=== PATIENT | female | born 1960 | race Caucasian/White ===

== ENCOUNTER 2020-03-15 11:29 | Inpatient (IN) ==
[2020-03-21] MEDS ORDERED: CEFUROXIME INJ 1,500 MG in SODIUM CHLORIDE 0.9% 100 ML IV ONE (09:05)
[2020-03-21] MEDS ORDERED: GLUCAGON 1 MG VIAL IM PRN (09:05)
[2020-03-21] MEDS ORDERED: DEXTROSE 50% 25 GM/50 ML VIAL IV PRN (09:05)
[2020-03-21] MEDS ORDERED: CLORAZEPATE 3.75 MG TABLET PO PRN (09:09)
[2020-03-21] MEDS ORDERED: ZALEPLON 5 MG CAPSULE PO PRN (09:09)
[2020-03-21 09:35] LABS: Basophils # 0.1 10*3/uL (0.0-0.2); Basophils % 0.8 % (0.0-0.8); Eosinophils # 0.4 10*3/uL (0.0-0.87); Eosinophils % 5.5 % (0.00-10.9); Hematocrit 45.8 VOL% (35.7-47.0); Hemoglobin 15.6 GM/DL (12.0-16.0); Immature Granulocytes % 0.3 %; Immature Granulocytes Absolute 0.02 #; Lymphocytes # 1.6 10*3/uL (1.4-4.0); Lymphocytes % 25.2 % (21.3-54.2); Mean Corpuscular HGB Conc 34.1 GM/DL (32-36); Mean Corpuscular Volume 94.6 FL (87-102); Mean Platelet Volume 9.6 FL (9.6-12.0); Monocytes % 10.1 % (1.7-12.7); Neutrophils % 58.1 % (38.7-73.9); Platelet Count 282 T/CUMM (130-400); Red Blood Count 4.84 MC/CUMM (3.8-5.5); White Blood Count 6.3 T/CUMM (4-12)
[2020-03-21 09:55] LABS: Albumin 3.7 G/DL (3.4-5.0); Bilirubin,Total 0.5 MG/DL (0.2-1.0); Calcium 8.9 MG/DL (8.5-10.1); Osmolality,Calculated 280.4 MOS/KG (273-304); Total Protein 8.4 G/DL (6.4-8.3)
[2020-03-21] MEDS ORDERED: ALBUTEROL/IPRATROPIUM 3 ML NEB RESP TX PRN (11:00)
[2020-03-21] MEDS: SODIUM CHLORIDE 0.9% 1,000 ML IV SCH (12:07)
[2020-03-21 14:47] LABS: ABG HCO3 26.2 MMOL/L (20-26); ABG Oxygen Saturation 94.5 % (95-100); ABG PCO2 39.8 MM HG (35-48); ABG PH 7.437 (7.35-7.45); ABG PO2 72.9 MM HG (80-95); ABG TCO2 27.5 MMOL/L (23-27)
[2020-03-21] MEDS: CHLORHEXIDINE 4% SOLN 118 ML BOTTLE TOP SCH ×2 (15:35→21:55)
[2020-03-21] MEDS ORDERED: MONTELUKAST 10 MG TABLET PO SCH (19:00)
[2020-03-21] MEDS ORDERED: NEBIVOLOL 10 MG TABLET PO SCH (19:00)
[2020-03-21] MEDS: BUDESONIDE/FORMOTEROL 160-4.5 INHALER 6 GM INH SCH (20:06)
[2020-03-21] MEDS: CHLORHEXIDINE 0.12% ORAL RINSE 60 ML BOTTLE SWISH/SPIT SCH (20:07)
[2020-03-22] MEDS ORDERED: VANCOMYCIN 1,000 MG VIAL ONE (04:21)
[2020-03-22] MEDS: CHLORHEXIDINE 4% SOLN 118 ML BOTTLE TOP SCH ×2 (04:50→10:48)
[2020-03-22] MEDS ORDERED: PANTOPRAZOLE 40 MG TABLET PO ONE (05:00)
[2020-03-22] MEDS ORDERED: DIAZEPAM 5 MG TABLET PO ONE (05:00)
[2020-03-22] MEDS ORDERED: CEFUROXIME INJ 1,500 MG in SYRINGE 1 EACH IV ONE (05:00)
[2020-03-22] MEDS ORDERED: MIDAZOLAM 10 MG/2 ML VIAL ONE ×2 (05:37)
[2020-03-22] MEDS ORDERED: CALCIUM CHLORIDE 1,000 MG/10 ML VIAL IV ONE (05:37)
[2020-03-22] MEDS ORDERED: LIDOCAINE 2% 5 ML VIAL ONE ×2 (05:37→10:26)
[2020-03-22] MEDS ORDERED: HEPARIN/NACL 0.9% 2 UNITS/ML 500 ML IV ONE (05:37)
[2020-03-22] MEDS ORDERED: AMINOCAPROIC ACID 5,000 MG/20 ML VIAL ONE (05:38)
[2020-03-22] MEDS ORDERED: ETOMIDATE 40 MG/20 ML VIAL IV ONE (05:38)
[2020-03-22] MEDS ORDERED: SUFentanil 250 MCG/5 ML AMP ONE (05:38)
[2020-03-22] MEDS ORDERED: SODIUM CHLORIDE 0.9% 250 ML IV ONE (05:39)
[2020-03-22] MEDS ORDERED: NITROGLYCERIN DRIP 50 MG/250 ML BOTTLE IV ONE (05:39)
[2020-03-22] MEDS ORDERED: LACTATED RINGERS 1,000 ML IV ONE ×2 (05:39→13:00)
[2020-03-22] MEDS ORDERED: PHENYLEPHRINE 10 MG/1 ML VIAL IV ONE (05:39)
[2020-03-22] MEDS ORDERED: VECURONIUM 10 MG VIAL IV ONE (05:39)
[2020-03-22] MEDS ORDERED: ePHEDrine 50 MG/ML VIAL ONE (05:39)
[2020-03-22] MEDS ORDERED: SODIUM CHLORIDE 0.9% 1,000 ML IV ONE (05:39)
[2020-03-22] MEDS ORDERED: IPRATROPIUM 500 MCG/2.5 ML NEB RESP TX ONE (06:00)
[2020-03-22] MEDS ORDERED: ALBUTEROL 2.5 MG/3 ML NEB RESP TX ONE (06:00)
[2020-03-22 07:34] LABS: ABG Base Excess 0.9 MMOL/L (-2.5-2.5); ABG HCO3 25.3 MMOL/L (20-26); ABG PH 7.406 (7.35-7.45); ABG TCO2 22.1 MMOL/L (23-27); Glucose Heart Surgery 130 MG/DL (74-106); Hematocrit Heart Surgery 43.9 PERCENT (37-47); Hemoglobin Heart Surgery 14.3 G/DL (12.0-16.0); Ionized Calcium Arterial 1.17 MMOL/L (1.21-1.46); PH Patient Temp Arterial 7.406; Patient Temperature 37 CELCIUS; Potassium Heart/CVR 3.3 MMOL/L (3.5-5.1); Sodium Heart/CVR 141 MMOL/L (135-145)
[2020-03-22 07:38] LABS: Bacteria,Urine Occasional /HPF (Few); Bilirubin,Urine Negative (Negative); Blood, Urine Negative (Negative); Glucose,Urine (UA) Negative (Negative); Ketones,Urine Negative (Negative); Nitrite,Urine Negative (Negative); Protein,Urine Negative; RBC,Urine <1 /HPF (0-4); Squamous Epithelial Cell,Urine Occasional /HPF (0-10); Urine Appearance CLEAR (Clear); Urine Color Yellow (Yellow); Urine Specific Gravity 1.009 (1.001-1.035); Urine Urobilinogen < 2.0 EU/DL (0.2-1.0); WBC,Urine <1 /HPF (0-6)
[2020-03-22] MEDS ORDERED: SODIUM BICARBONATE 50 MEQ/50 ML VIAL IV ONE ×2 (07:47→10:26)
[2020-03-22] MEDS ORDERED: PHENYLEPHRINE DRIP 40 MG/250 ML PREMIX IV ONE (07:48)
[2020-03-22] MEDS ORDERED: ALBUMIN 5% 12.5 GM/250 ML VIAL IV ONE (07:48)
[2020-03-22] MEDS ORDERED: NITROPRUSSIDE 50 MG/2 ML VIAL ONE (07:48)
[2020-03-22] MEDS ORDERED: ATROPINE 1 MG/10 ML SYRINGE ONE (07:49)
[2020-03-22] MEDS ORDERED: CALCIUM CHLORIDE 1,000 MG/10 ML SYRINGE IV ONE (07:49)
[2020-03-22] MEDS ORDERED: EPINEPHrine 1 MG/10 ML SYRINGE ONE (07:49)
[2020-03-22 08:39] LABS: Hematocrit Heart Surgery 29.9 PERCENT (37-47); Hemoglobin Heart Surgery 9.7 G/DL (12.0-16.0); PCO2 Patient Temp Venous 36.5 MM HG; PH Patient Temp Venous 7.446; PO2 Patient Temp Venous 37.8 MM HG; Potassium Heart/CVR 3.5 MMOL/L (3.5-5.1); VBG Base Excess 1.4 MEQ/L (0-4); VBG HCO3 25.4 MEQ/L (24-28); VBG Oxygen Saturation 81.9 %; VBG PCO2 42.2 MMHG (41-51); VBG PH 7.403; VBG PO2 46.5 MMHG (17-40)
[2020-03-22 09:05] LABS: Hematocrit Heart Surgery 30.6 PERCENT (37-47); Hemoglobin Heart Surgery 9.9 G/DL (12.0-16.0); PCO2 Patient Temp Venous 34.7 MM HG; PH Patient Temp Venous 7.462; PO2 Patient Temp Venous 37.4 MM HG; Potassium Heart/CVR 3.7 MMOL/L (3.5-5.1); VBG Base Excess 1.4 MEQ/L (0-4); VBG HCO3 25.5 MEQ/L (24-28); VBG Oxygen Saturation 84.1 %; VBG PCO2 42.1 MMHG (41-51); VBG PH 7.404; VBG PO2 49.2 MMHG (17-40)
[2020-03-22 09:36] LABS: Hematocrit Heart Surgery 32.6 PERCENT (37-47); Hemoglobin Heart Surgery 10.6 G/DL (12.0-16.0); PCO2 Patient Temp Venous 38.3 MM HG; PH Patient Temp Venous 7.432; PO2 Patient Temp Venous 37.6 MM HG; Potassium Heart/CVR 3.9 MMOL/L (3.5-5.1); VBG Base Excess 1.4 MEQ/L (0-4); VBG HCO3 25.3 MEQ/L (24-28); VBG Oxygen Saturation 77.5 %; VBG PCO2 42.2 MMHG (41-51); VBG PH 7.403; VBG PO2 43.2 MMHG (17-40)
[2020-03-22] MEDS ORDERED: DEXTROSE 5% KCL 20 MEQ 20 MEQ/1,000 ML BAG IV ONE (10:26)
[2020-03-22] MEDS ORDERED: HEPARIN 10,000 UNIT/10 ML VIAL ONE (10:26)
[2020-03-22] MEDS ORDERED: PROTAMINE SULFATE 250 MG/25 ML VIAL IV ONE (10:26)
[2020-03-22] MEDS ORDERED: methylPREDNISolone SOD SUC 1,000 MG/8 ML VIAL ONE (10:26)
[2020-03-22] MEDS ORDERED: ALBUMIN 25% 25 GM/100 ML VIAL IV ONE (10:26)
[2020-03-22] MEDS ORDERED: PROTAMINE SULFATE 50 MG/5 ML VIAL IV ONE (10:26)
[2020-03-22] MEDS ORDERED: FUROSEMIDE 20 MG/2 ML VIAL ONE (10:26)
[2020-03-22] MEDS ORDERED: MAGNESIUM SULFATE 5 GM/10 ML VIAL IV ONE (10:26)
[2020-03-22] MEDS ORDERED: MANNITOL 100 GM/500 ML BAG IV ONE (10:26)
[2020-03-22 10:27] LABS: ABG Base Excess -0.6 MMOL/L (-2.5-2.5); ABG HCO3 23.9 MMOL/L (20-26); ABG PCO2 42.5 MM HG (35-48); ABG PH 7.372 (7.35-7.45); ABG TCO2 22.2 MMOL/L (23-27); Glucose Heart Surgery 219 MG/DL (74-106); Ionized Calcium Arterial 1.17 MMOL/L (1.21-1.46); PCO2 Patient Temp Arterial 42.5 MMHG; PH Patient Temp Arterial 7.372; Patient Temperature 37 CELCIUS; Potassium Heart/CVR 3.6 MMOL/L (3.5-5.1); Sodium Heart/CVR 136 MMOL/L (135-145)
[2020-03-22] MEDS: CHLORHEXIDINE 0.12% ORAL RINSE 60 ML BOTTLE SWISH/SPIT SCH ×2 (10:48→20:31)
[2020-03-22] MEDS: SODIUM CHLORIDE 0.9% 1,000 ML IV SCH (10:49)
[2020-03-22] MEDS: BUDESONIDE/FORMOTEROL 160-4.5 INHALER 6 GM INH SCH (10:49)
[2020-03-22] MEDS ORDERED: MIDAZOLAM 2 MG/2 ML VIAL ONE (11:22)
[2020-03-22] MEDS ORDERED: CALCIUM CHLORIDE 1,000 MG/10 ML SYRINGE IV PRN (11:25)
[2020-03-22] MEDS ORDERED: MAGNESIUM SULF RIDER 4 GM in PREMIX 1 EACH IV PRN (11:25)
[2020-03-22] MEDS ORDERED: MAGNESIUM SULF RIDER 2 GM in PREMIX 1 EACH IV PRN (11:25)
[2020-03-22] MEDS ORDERED: INSULIN REGULAR 100 UNIT/ML IV PRN (11:25)
[2020-03-22] MEDS ORDERED: LACTATED RINGERS 250 ML IV PRN (11:25)
[2020-03-22] MEDS ORDERED: VECURONIUM 10 MG VIAL IV PRN ×2 (11:25)
[2020-03-22] MEDS ORDERED: MIDAZOLAM 10 MG/2 ML VIAL IV PRN (11:25)
[2020-03-22] MEDS ORDERED: PHENYLEPHRINE DRIP 40 MG/250 ML PREMIX IV PRN (11:25)
[2020-03-22] MEDS ORDERED: POTASSIUM CHLORIDE RIDER 10 MEQ in PREMIX 1 EACH IV PRN (11:25)
[2020-03-22] MEDS ORDERED: MORPHINE 10 MG/1 ML VIAL IV PRN (11:25)
[2020-03-22] MEDS ORDERED: POTASSIUM CHLORIDE RIDER 20 MEQ in PREMIX 1 EACH IV PRN (11:25)
[2020-03-22] MEDS ORDERED: INSULIN REGULAR 100 UNIT/ML IV ONE (11:25)
[2020-03-22] MEDS ORDERED: INSULIN REGULAR DRIP 100 ML IV SCH (11:25)
[2020-03-22] MEDS ORDERED: SODIUM CHLORIDE 0.45% 1,000 ML IV SCH ×2 (11:25)
[2020-03-22] MEDS ORDERED: CHLORHEXIDINE 4% SOLN 118 ML BOTTLE TOP PRN (11:25)
[2020-03-22] MEDS ORDERED: DEXTROSE 50% 25 GM/50 ML VIAL IV PRN ×2 (11:25)
[2020-03-22] MEDS ORDERED: NITROPRUSSIDE 100 MG in DEXTROSE 5% 250 ML IV PRN (11:25)
[2020-03-22] MEDS ORDERED: ACETAMINOPHEN 650 MG SUPP RECTAL PRN (11:25)
[2020-03-22] MEDS ORDERED: SEVOFLURANE 1 UNIT/15 MINUTE INH ONE (11:31)
[2020-03-22] MEDS: MIDAZOLAM 2 MG/2 ML VIAL IV PRN (11:40)
[2020-03-22 12:25] LABS: ABG Base Excess -2.2 MMOL/L (-2.5-2.5); ABG HCO3 22.6 MMOL/L (20-26); ABG Oxygen Saturation 99.4 % (95-100); ABG PCO2 40.9 MM HG (35-48); ABG PH 7.361 (7.35-7.45); ABG TCO2 20.4 MMOL/L (23-27); Glucose Heart Surgery 192 MG/DL (74-106); Hematocrit Heart Surgery 38.6 PERCENT (37-47); Hemoglobin Heart Surgery 12.6 G/DL (12.0-16.0); Potassium Heart/CVR 3.9 MMOL/L (3.5-5.1)
[2020-03-22] MEDS: KETOROLAC 30 MG/1 ML VIAL IV SCH ×2 (12:36→18:12)
[2020-03-22 12:39] LABS: Basophils # 0.1 10*3/uL (0.0-0.2); Basophils % 0.3 % (0.0-0.8); Eosinophils # 0.1 10*3/uL (0.0-0.87); Eosinophils % 0.4 % (0.00-10.9); Hematocrit 35.5 VOL% (35.7-47.0); Hemoglobin 12.7 GM/DL (12.0-16.0); Immature Granulocytes % 0.6 %; Immature Granulocytes Absolute 0.11 #; Lymphocytes # 1.3 10*3/uL (1.4-4.0); Lymphocytes % 7.3 % (21.3-54.2); Mean Corpuscular HGB Conc 35.8 GM/DL (32-36); Mean Corpuscular Volume 92.9 FL (87-102); Mean Platelet Volume 10.1 FL (9.6-12.0); Monocytes % 4.3 % (1.7-12.7); Neutrophils % 87.1 % (38.7-73.9); Platelet Count 207 T/CUMM (130-400); Red Blood Count 3.82 MC/CUMM (3.8-5.5); White Blood Count 18.2 T/CUMM (4-12)
[2020-03-22 12:50] LABS: CKMB % 4.8 %
[2020-03-22 12:55] LABS: Albumin 3.3 G/DL (3.4-5.0); Osmolality,Calculated 285.3 MOS/KG (273-304); Total Protein 6.7 G/DL (6.4-8.3)
[2020-03-22 12:57] LABS: INR 1.1; PT Patient Result 12.2 SECS (9.8-11.9); Partial Thromboplastin Time 24.1 SECS (23.9-33.8)
[2020-03-22 13:02] LABS: Troponin I 7.34 NG/ML (0.00-0.045)
[2020-03-22] MEDS: ALBUMIN 5% 12.5 GM in PREMIX 1 EACH IV PRN ×2 (13:49→16:54)
[2020-03-22 14:03] LABS: ABG Base Excess -2.5 MMOL/L (-2.5-2.5); ABG HCO3 22.3 MMOL/L (20-26); ABG Oxygen Saturation 98.6 % (95-100); ABG PCO2 43.4 MM HG (35-48); ABG PH 7.338 (7.35-7.45); ABG TCO2 21.1 MMOL/L (23-27); Glucose Heart Surgery 173 MG/DL (74-106); Hemoglobin Heart Surgery 10.7 G/DL (12.0-16.0); Potassium Heart/CVR 3.9 MMOL/L (3.5-5.1)
[2020-03-22] MEDS: ONDANSETRON 4 MG/2 ML VIAL IV PRN ×2 (16:04→20:32)
[2020-03-22] MEDS: MORPHINE 4 MG/1 ML VIAL IV PRN ×2 (16:05→20:31)
[2020-03-22 16:32] LABS: ABG Base Excess -3.4 MMOL/L (-2.5-2.5); ABG HCO3 21.6 MMOL/L (20-26); ABG Oxygen Saturation 97.5 % (95-100); ABG PCO2 42.2 MM HG (35-48); ABG PH 7.332 (7.35-7.45); ABG PO2 97.7 MM HG (80-95); ABG TCO2 20.2 MMOL/L (23-27); Glucose Heart Surgery 184 MG/DL (74-106); Hematocrit Heart Surgery 34.2 PERCENT (37-47); Hemoglobin Heart Surgery 11.1 G/DL (12.0-16.0); Potassium Heart/CVR 4.2 MMOL/L (3.5-5.1)
[2020-03-22 18:00] LABS: ABG Base Excess -3.2 MMOL/L (-2.5-2.5); ABG HCO3 21.7 MMOL/L (20-26); ABG Oxygen Saturation 95.6 % (95-100); ABG PCO2 45.5 MM HG (35-48); ABG PH 7.314 (7.35-7.45); ABG TCO2 21.1 MMOL/L (23-27); Glucose Heart Surgery 163 MG/DL (74-106); Hematocrit Heart Surgery 32.6 PERCENT (37-47); Hemoglobin Heart Surgery 10.6 G/DL (12.0-16.0); Potassium Heart/CVR 4.2 MMOL/L (3.5-5.1)
[2020-03-22] MEDS: CEFUROXIME INJ 1,500 MG in SYRINGE 1 EACH IV SCH (18:13)
[2020-03-22] MEDS: NEBIVOLOL 10 MG TABLET PO SCH (20:31)
[2020-03-22 20:34] LABS: ABG Base Excess -2.2 MMOL/L (-2.5-2.5); ABG HCO3 22.6 MMOL/L (20-26); ABG Oxygen Saturation 94.8 % (95-100); ABG PCO2 44.4 MM HG (35-48); ABG PH 7.337 (7.35-7.45); ABG PO2 76.8 MM HG (80-95); ABG TCO2 21.3 MMOL/L (23-27); Glucose Heart Surgery 127 MG/DL (74-106); Hematocrit Heart Surgery 35.9 PERCENT (37-47); Hemoglobin Heart Surgery 11.6 G/DL (12.0-16.0); Potassium Heart/CVR 4.2 MMOL/L (3.5-5.1)
[2020-03-22 21:09] LABS: CKMB % 2.9 %
[2020-03-22 21:11] LABS: Troponin I 4.13 NG/ML (0.00-0.045)
[2020-03-22] MEDS ORDERED: FUROSEMIDE 40 MG/4 ML VIAL IV ONE (21:30)
[2020-03-23] MEDS: KETOROLAC 30 MG/1 ML VIAL IV SCH ×5 (01:19→23:14)
[2020-03-23] MEDS: MORPHINE 4 MG/1 ML VIAL IV PRN (02:07)
[2020-03-23] MEDS: ALBUMIN 5% 12.5 GM in PREMIX 1 EACH IV PRN (02:19)
[2020-03-23 03:57] LABS: ABG Base Excess 0.1 MMOL/L (-2.5-2.5); ABG HCO3 24.4 MMOL/L (20-26); ABG Oxygen Saturation 94.6 % (95-100); ABG PCO2 44.4 MM HG (35-48); ABG PH 7.368 (7.35-7.45); ABG TCO2 23.5 MMOL/L (23-27); Glucose Heart Surgery 141 MG/DL (74-106); Hematocrit Heart Surgery 29.3 PERCENT (37-47); Hemoglobin Heart Surgery 9.4 G/DL (12.0-16.0); Potassium Heart/CVR 4.1 MMOL/L (3.5-5.1)
[2020-03-23] MEDS: INSULIN REGULAR 100 UNIT/ML SUBCUT SCH ×5 (04:04→22:53)
[2020-03-23 04:18] LABS: Basophils % 0.1 % (0.0-0.8); Hematocrit 27.2 VOL% (35.7-47.0); Immature Granulocytes % 0.4 %; Immature Granulocytes Absolute 0.06 #; Lymphocytes # 0.8 10*3/uL (1.4-4.0); Lymphocytes % 5.8 % (21.3-54.2); Mean Corpuscular HGB Conc 34.6 GM/DL (32-36); Mean Corpuscular Volume 93.5 FL (87-102); Mean Platelet Volume 10.4 FL (9.6-12.0); Monocytes % 6.7 % (1.7-12.7); Platelet Count 169 T/CUMM (130-400); Red Cell Distribution Width 13.2 % (9.3-17.3); White Blood Count 14.4 T/CUMM (4-12)
[2020-03-23 04:22] LABS: Hemoglobin 9.4 GM/DL (12.0-16.0); Red Blood Count 2.91 MC/CUMM (3.8-5.5)
[2020-03-23 04:28] LABS: Albumin 3.6 G/DL (3.4-5.0); Bilirubin,Direct 0.22 MG/DL (0.0-0.20); Bilirubin,Total 0.6 MG/DL (0.2-1.0); Calcium 8.5 MG/DL (8.5-10.1); Osmolality,Calculated 284.3 MOS/KG (273-304); Total Protein 6.1 G/DL (6.4-8.3)
[2020-03-23 04:30] LABS: CKMB % 1.8 %
[2020-03-23 04:32] LABS: Troponin I 2.84 NG/ML (0.00-0.045)
[2020-03-23] MEDS: ONDANSETRON 4 MG/2 ML VIAL IV PRN (05:34)
[2020-03-23] MEDS: MIDAZOLAM 2 MG/2 ML VIAL IV PRN (06:05)
[2020-03-23] MEDS ORDERED: FUROSEMIDE 40 MG/4 ML VIAL IV ONE (06:24)
[2020-03-23] MEDS: CEFUROXIME INJ 1,500 MG in SYRINGE 1 EACH IV SCH ×2 (06:42→18:16)
[2020-03-23] MEDS ORDERED: ONDANSETRON 4 MG/2 ML VIAL IV ONE (07:59)
[2020-03-23] MEDS: NEBIVOLOL 10 MG TABLET PO SCH (08:33)
[2020-03-23] MEDS ORDERED: MAGNESIUM SULF RIDER 2 GM in PREMIX 1 EACH IV PRN (09:56)
[2020-03-23] MEDS ORDERED: MAGNESIUM SULF RIDER 4 GM in PREMIX 1 EACH IV PRN (09:56)
[2020-03-23] MEDS ORDERED: ALUMINUM/MAGNES/SIMETH MAX STR 30 ML UDCUP PO PRN (09:56)
[2020-03-23] MEDS ORDERED: FERROUS SULFATE 325 MG TABLET PO PRN (09:56)
[2020-03-23] MEDS ORDERED: DEXTROSE 50% 25 GM/50 ML VIAL IV PRN (09:56)
[2020-03-23] MEDS ORDERED: GLUCAGON 1 MG VIAL IM PRN (09:56)
[2020-03-23] MEDS ORDERED: MAGNESIUM HYDROXIDE SUSP 30 ML UDCUP PO PRN (09:56)
[2020-03-23] MEDS ORDERED: ACETAMINOPHEN 325 MG TABLET PO PRN (09:56)
[2020-03-23] MEDS ORDERED: ONDANSETRON 4 MG/2 ML VIAL IV PRN (09:56)
[2020-03-23] MEDS ORDERED: ALBUTEROL/IPRATROPIUM 3 ML NEB RESP TX PRN (10:43)
[2020-03-23] MEDS: CHLORHEXIDINE 0.12% ORAL RINSE 60 ML BOTTLE SWISH/SPIT SCH ×3 (11:09→21:10)
[2020-03-23] MEDS: BUDESONIDE/FORMOTEROL 160-4.5 INHALER 6 GM INH SCH ×2 (11:34→21:11)
[2020-03-23] MEDS ORDERED: SODIUM CHLOR 0.45% KCL 20 MEQ 20 MEQ/1,000 ML BAG IV SCH (12:00)
[2020-03-23] MEDS: DOCUSATE SODIUM 100 MG CAPSULE PO SCH (12:12)
[2020-03-23] MEDS: ASPIRIN EC 81 MG TABLET PO SCH (12:12)
[2020-03-23] MEDS: oxyCODONE/ACETAMINOPHEN 5-325 MG TABLET PO PRN ×2 (14:26→23:17)
[2020-03-23] MEDS ORDERED: ROSUVASTATIN 20 MG TABLET PO SCH (21:00)
[2020-03-23] MEDS: MONTELUKAST 10 MG TABLET PO SCH (21:10)
[2020-03-23] MEDS: ASCORBIC ACID 500 MG TABLET PO SCH (21:10)
[2020-03-23] MEDS: ZALEPLON 5 MG CAPSULE PO PRN (23:17)
[2020-03-24] MEDS: INSULIN REGULAR 100 UNIT/ML SUBCUT SCH ×7 (01:40→23:41)
[2020-03-24] MEDS: KETOROLAC 30 MG/1 ML VIAL IV SCH ×4 (05:17→23:37)
[2020-03-24 05:53] LABS: Basophils % 0.1 % (0.0-0.8); Hematocrit 27.9 VOL% (35.7-47.0); Hemoglobin 9.1 GM/DL (12.0-16.0); Immature Granulocytes % 0.5 %; Immature Granulocytes Absolute 0.07 #; Lymphocytes # 1.4 10*3/uL (1.4-4.0); Lymphocytes % 9.9 % (21.3-54.2); Mean Corpuscular HGB Conc 32.6 GM/DL (32-36); Mean Corpuscular Volume 98.9 FL (87-102); Mean Platelet Volume 10.6 FL (9.6-12.0); Monocytes % 8.4 % (1.7-12.7); Neutrophils % 81.1 % (38.7-73.9); Platelet Count 148 T/CUMM (130-400); Red Blood Count 2.82 MC/CUMM (3.8-5.5); Red Cell Distribution Width 13.3 % (9.3-17.3); White Blood Count 14.4 T/CUMM (4-12)
[2020-03-24] MEDS ORDERED: FUROSEMIDE 40 MG/4 ML VIAL IV ONE (06:00)
[2020-03-24 06:18] LABS: Albumin 3.2 G/DL (3.4-5.0); Bilirubin,Direct 0.18 MG/DL (0.0-0.20); Bilirubin,Total 0.6 MG/DL (0.2-1.0); Calcium 8.5 MG/DL (8.5-10.1); Osmolality,Calculated 289.3 MOS/KG (273-304); Total Protein 6.5 G/DL (6.4-8.3)
[2020-03-24 06:22] LABS: Alanine Aminotransferase 21 U/L (13-56); Albumin 3.2 G/DL (3.4-5.0); Alkaline Phosphatase 45 U/L (45-117); Aspartate Amino Transferase 26 U/L (0-37); Bilirubin,Indirect 0.5 MG/DL (0.0-1.0); Total Protein 6.1 G/DL (6.4-8.3)
[2020-03-24] MEDS: PANTOPRAZOLE 40 MG TABLET PO SCH (06:38)
[2020-03-24] MEDS: DOCUSATE SODIUM 100 MG CAPSULE PO SCH (09:46)
[2020-03-24] MEDS: ASCORBIC ACID 500 MG TABLET PO SCH ×2 (09:46→21:15)
[2020-03-24] MEDS: ASPIRIN EC 81 MG TABLET PO SCH (09:46)
[2020-03-24] MEDS: NEBIVOLOL 10 MG TABLET PO SCH (09:46)
[2020-03-24] MEDS: oxyCODONE/ACETAMINOPHEN 5-325 MG TABLET PO PRN (09:47)
[2020-03-24] MEDS: POTASSIUM CHLORIDE 20 MEQ TABLET PO PRN ×2 (09:47→11:57)
[2020-03-24] MEDS: CHLORHEXIDINE 0.12% ORAL RINSE 60 ML BOTTLE SWISH/SPIT SCH ×2 (09:47→21:18)
[2020-03-24] MEDS: FUROSEMIDE 40 MG/4 ML VIAL IV SCH ×2 (09:50→17:41)
[2020-03-24] MEDS: BUDESONIDE/FORMOTEROL 160-4.5 INHALER 6 GM INH SCH ×2 (09:50→21:18)
[2020-03-24] MEDS ORDERED: AMIODARONE INJ 150 MG in DEXTROSE 5% 100 ML IV ONE (13:28)
[2020-03-24] MEDS ORDERED: AMIODARONE INJ 450 MG in DEXTROSE 5% 241 ML IV SCH (13:30)
[2020-03-24] MEDS: ZALEPLON 5 MG CAPSULE PO PRN (21:15)
[2020-03-24] MEDS: MONTELUKAST 10 MG TABLET PO SCH (21:16)
[2020-03-24] MEDS: AMIODARONE INJ 450 MG in DEXTROSE 5% 241 ML IV SCH (21:57)
[2020-03-25 06:09] LABS: Basophils % 0.2 % (0.0-0.8); Eosinophils % 0.3 % (0.00-10.9); Hematocrit 27.5 VOL% (35.7-47.0); Hemoglobin 9.3 GM/DL (12.0-16.0); Immature Granulocytes % 0.6 %; Immature Granulocytes Absolute 0.07 #; Lymphocytes # 1.6 10*3/uL (1.4-4.0); Lymphocytes % 13.8 % (21.3-54.2); Mean Corpuscular HGB Conc 33.8 GM/DL (32-36); Mean Corpuscular Volume 95.8 FL (87-102); Mean Platelet Volume 10.6 FL (9.6-12.0); Monocytes % 9.2 % (1.7-12.7); Neutrophils % 75.9 % (38.7-73.9); Platelet Count 164 T/CUMM (130-400); Red Blood Count 2.87 MC/CUMM (3.8-5.5); Red Cell Distribution Width 13.3 % (9.3-17.3); White Blood Count 11.4 T/CUMM (4-12)
[2020-03-25] MEDS: KETOROLAC 30 MG/1 ML VIAL IV SCH ×3 (06:13→17:29)
[2020-03-25] MEDS: PANTOPRAZOLE 40 MG TABLET PO SCH (06:14)
[2020-03-25 06:30] LABS: Albumin 3.1 G/DL (3.4-5.0); Bilirubin,Direct 0.23 MG/DL (0.0-0.20); Bilirubin,Direct 0.27 MG/DL (0.0-0.20); Bilirubin,Indirect 1.1 MG/DL (0.0-1.0); Bilirubin,Total 0.8 MG/DL (0.2-1.0); Bilirubin,Total 1.4 MG/DL (0.2-1.0); Calcium 8.4 MG/DL (8.5-10.1); Osmolality,Calculated 293.1 MOS/KG (273-304); Total Protein 6.1 G/DL (6.4-8.3)
[2020-03-25 06:31] LABS: Troponin I 0.611 NG/ML (0.00-0.045)
[2020-03-25] MEDS: NEBIVOLOL 10 MG TABLET PO SCH (10:06)
[2020-03-25] MEDS: FUROSEMIDE 40 MG/4 ML VIAL IV SCH (10:06)
[2020-03-25] MEDS: ASPIRIN EC 81 MG TABLET PO SCH (10:07)
[2020-03-25] MEDS: ASCORBIC ACID 500 MG TABLET PO SCH ×2 (10:07→20:39)
[2020-03-25] MEDS: POTASSIUM CHLORIDE 20 MEQ TABLET PO PRN (10:09)
[2020-03-25] MEDS: BUDESONIDE/FORMOTEROL 160-4.5 INHALER 6 GM INH SCH ×2 (10:10→20:42)
[2020-03-25] MEDS: DOCUSATE SODIUM 100 MG CAPSULE PO SCH (10:10)
[2020-03-25] MEDS: CHLORHEXIDINE 0.12% ORAL RINSE 60 ML BOTTLE SWISH/SPIT SCH ×2 (10:10→20:42)
[2020-03-25] MEDS: AMIODARONE INJ 450 MG in DEXTROSE 5% 241 ML IV SCH (12:46)
[2020-03-25] MEDS: MONTELUKAST 10 MG TABLET PO SCH (20:39)
[2020-03-25] MEDS: ZALEPLON 5 MG CAPSULE PO PRN (20:40)
[2020-03-26] MEDS: KETOROLAC 30 MG/1 ML VIAL IV SCH ×4 (00:25→18:09)
[2020-03-26] MEDS: PANTOPRAZOLE 40 MG TABLET PO SCH (05:33)
[2020-03-26 06:23] LABS: Basophils % 0.2 % (0.0-0.8); Eosinophils # 0.3 10*3/uL (0.0-0.87); Eosinophils % 2.6 % (0.00-10.9); Hematocrit 27.7 VOL% (35.7-47.0); Hemoglobin 9.1 GM/DL (12.0-16.0); Immature Granulocytes % 0.5 %; Immature Granulocytes Absolute 0.05 #; Lymphocytes # 1.7 10*3/uL (1.4-4.0); Lymphocytes % 16.1 % (21.3-54.2); Mean Corpuscular HGB Conc 32.9 GM/DL (32-36); Mean Corpuscular Volume 96.5 FL (87-102); Mean Platelet Volume 10.4 FL (9.6-12.0); Monocytes % 9.9 % (1.7-12.7); Neutrophils % 70.7 % (38.7-73.9); Platelet Count 233 T/CUMM (130-400); Red Blood Count 2.87 MC/CUMM (3.8-5.5); Red Cell Distribution Width 13.2 % (9.3-17.3); White Blood Count 10.3 T/CUMM (4-12)
[2020-03-26 06:39] LABS: Calcium 8.9 MG/DL (8.5-10.1)
[2020-03-26] MEDS: POTASSIUM CHLORIDE 20 MEQ TABLET PO PRN (06:42)
[2020-03-26] MEDS: CHLORHEXIDINE 0.12% ORAL RINSE 60 ML BOTTLE SWISH/SPIT SCH ×2 (08:28→20:54)
[2020-03-26] MEDS: DOCUSATE SODIUM 100 MG CAPSULE PO SCH (08:28)
[2020-03-26] MEDS: ASPIRIN EC 81 MG TABLET PO SCH (08:28)
[2020-03-26] MEDS: ASCORBIC ACID 500 MG TABLET PO SCH ×2 (08:28→20:53)
[2020-03-26] MEDS: BUDESONIDE/FORMOTEROL 160-4.5 INHALER 6 GM INH SCH ×2 (08:28→20:54)
[2020-03-26] MEDS: AMIODARONE 200 MG TABLET PO SCH (13:47)
[2020-03-26] MEDS: MONTELUKAST 10 MG TABLET PO SCH (18:09)
[2020-03-26] MEDS: ZALEPLON 5 MG CAPSULE PO PRN (22:48)
[2020-03-27] MEDS: KETOROLAC 30 MG/1 ML VIAL IV SCH ×2 (00:50→06:14)
[2020-03-27 06:01] LABS: Basophils % 0.2 % (0.0-0.8); Eosinophils # 0.6 10*3/uL (0.0-0.87); Hematocrit 27.5 VOL% (35.7-47.0); Hemoglobin 9.1 GM/DL (12.0-16.0); Immature Granulocytes % 0.6 %; Immature Granulocytes Absolute 0.05 #; Lymphocytes # 1.6 10*3/uL (1.4-4.0); Lymphocytes % 18.7 % (21.3-54.2); Mean Corpuscular HGB Conc 33.1 GM/DL (32-36); Mean Corpuscular Volume 96.2 FL (87-102); Monocytes % 8.8 % (1.7-12.7); Neutrophils % 64.7 % (38.7-73.9); Platelet Count 273 T/CUMM (130-400); Red Blood Count 2.86 MC/CUMM (3.8-5.5); Red Cell Distribution Width 13.2 % (9.3-17.3); White Blood Count 8.6 T/CUMM (4-12)
[2020-03-27] MEDS: PANTOPRAZOLE 40 MG TABLET PO SCH (06:14)
[2020-03-27 06:20] LABS: Alanine Aminotransferase 28 U/L (13-56); Alkaline Phosphatase 62 U/L (45-117); Aspartate Amino Transferase 17 U/L (0-37); Blood Urea Nitrogen 40 MG/DL (7-18); Calcium 8.8 MG/DL (8.5-10.1); Estimated Glom Filtration Rate 94 ML/MIN; Glucose 85 MG/DL (74-106); Osmolality,Calculated 287.4 MOS/KG (273-304); Total Protein 6.6 G/DL (6.4-8.3)
[2020-03-27 06:21] LABS: Troponin I 0.202 NG/ML (0.00-0.045)
[2020-03-27] MEDS: ASCORBIC ACID 500 MG TABLET PO SCH ×2 (08:13→21:46)
[2020-03-27] MEDS: AMIODARONE 200 MG TABLET PO SCH (08:14)
[2020-03-27] MEDS: ASPIRIN EC 81 MG TABLET PO SCH (08:14)
[2020-03-27] MEDS: CHLORHEXIDINE 0.12% ORAL RINSE 60 ML BOTTLE SWISH/SPIT SCH ×2 (08:14→21:47)
[2020-03-27] MEDS: DOCUSATE SODIUM 100 MG CAPSULE PO SCH (08:14)
[2020-03-27] MEDS: BUDESONIDE/FORMOTEROL 160-4.5 INHALER 6 GM INH SCH ×2 (08:15→21:47)
[2020-03-27] MEDS: hydroCHLOROthiazide 25 MG TABLET PO SCH (09:45)
[2020-03-27] MEDS ORDERED: FUROSEMIDE 20 MG/2 ML VIAL IV ONE (10:49)
[2020-03-27] MEDS: POTASSIUM CHLORIDE 20 MEQ TABLET PO SCH (11:25)
[2020-03-27] MEDS: oxyCODONE/ACETAMINOPHEN 5-325 MG TABLET PO PRN ×2 (17:03→21:46)
[2020-03-27] MEDS: MONTELUKAST 10 MG TABLET PO SCH (21:46)
[2020-03-28 05:25] LABS: Basophils % 0.3 % (0.0-0.8); Eosinophils # 0.8 10*3/uL (0.0-0.87); Eosinophils % 8.7 % (0.00-10.9); Hematocrit 28.5 VOL% (35.7-47.0); Hemoglobin 9.3 GM/DL (12.0-16.0); Immature Granulocytes % 0.3 %; Immature Granulocytes Absolute 0.03 #; Lymphocytes # 1.5 10*3/uL (1.4-4.0); Lymphocytes % 17.8 % (21.3-54.2); Mean Corpuscular HGB Conc 32.6 GM/DL (32-36); Mean Corpuscular Volume 97.6 FL (87-102); Mean Platelet Volume 9.6 FL (9.6-12.0); Monocytes % 9.6 % (1.7-12.7); Neutrophils % 63.3 % (38.7-73.9); Platelet Count 316 T/CUMM (130-400); Red Blood Count 2.92 MC/CUMM (3.8-5.5); Red Cell Distribution Width 13.3 % (9.3-17.3); White Blood Count 8.6 T/CUMM (4-12)
[2020-03-28] MEDS: PANTOPRAZOLE 40 MG TABLET PO SCH (06:14)
[2020-03-28 09:21] LABS: Alanine Aminotransferase 29 U/L (13-56); Albumin 2.9 G/DL (3.4-5.0); Alkaline Phosphatase 64 U/L (45-117); Aspartate Amino Transferase 17 U/L (0-37); Bilirubin,Direct 0.246 MG/DL (0.0-0.20); Bilirubin,Indirect 0.3 MG/DL (0.0-1.0); Bilirubin,Total 0.59 MG/DL (0.2-1.0); Blood Urea Nitrogen 34 MG/DL (7-18); Calcium 8.8 MG/DL (8.5-10.1); Estimated Glom Filtration Rate 101 ML/MIN; Glucose 89 MG/DL (74-106); Total Protein 6.8 G/DL (6.4-8.3)
[2020-03-28 09:22] LABS: Osmolality,Calculated 289.1 MOS/KG (273-304); Troponin I 0.139 NG/ML (0.00-0.045)
[2020-03-28] MEDS: ASCORBIC ACID 500 MG TABLET PO SCH (09:41)
[2020-03-28] MEDS: ASPIRIN EC 81 MG TABLET PO SCH (09:41)
[2020-03-28] MEDS: hydroCHLOROthiazide 25 MG TABLET PO SCH (09:41)
[2020-03-28] MEDS: AMIODARONE 200 MG TABLET PO SCH (09:41)
[2020-03-28] MEDS: POTASSIUM CHLORIDE 20 MEQ TABLET PO SCH (09:41)
[2020-03-28] MEDS: CHLORHEXIDINE 0.12% ORAL RINSE 60 ML BOTTLE SWISH/SPIT SCH (09:42)
[2020-03-28] MEDS: BUDESONIDE/FORMOTEROL 160-4.5 INHALER 6 GM INH SCH (09:42)
[2020-03-28] MEDS: DOCUSATE SODIUM 100 MG CAPSULE PO SCH (09:42)
[2020-03-28 12:25] VITALS: BP 161/64
== END 2020-03-28 13:10 | disposition home or self-care (01) | DRG 220 ==
LOC: SUPCPDRO 03-21 09:02 → N.4E 03-21 09:02 → N.CVR 03-22 10:52 → N.ICU 03-23 08:59 → N.TELES 03-23 13:23